=== PATIENT | male | born 1985 | race Caucasian/White ===

== ENCOUNTER 2017-08-11 17:50 | Emergency (ER) | payer BC ==
[2017-08-11] MEDS ORDERED: Acetaminophen/oxyCODONE 325-5 MG Tab PO ONE (17:51)
[2017-08-11] MEDS ORDERED: Ondansetron 4 MG Tab.DIS PO ONE (17:51)
[2017-08-11] MEDS ORDERED: Ketorolac 30 MG/ML SDV IVPUSH ONE (17:59)
[2017-08-11] MEDS ORDERED: Ondansetron 4 MG/2 ML SDV IVPUSH STA (17:59)
[2017-08-11] MEDS ORDERED: HYDROmorphone 1 MG/ML Syringe IVPUSH ONE (17:59)
[2017-08-11] MEDS ORDERED: Sodium Chloride 0.9% 1,000 ML IV ONE (18:00)
[2017-08-11 18:14] LABS: CHLORIDE,CL 100 mEq/L (98-106); SODIUM,NA 138 mEq/L (136-145)
[2017-08-11] MEDS ORDERED: Tamsulosin 0.4 MG Cap.ER PO ONE (18:31)
--- NOTE | 2017-08-11 18:43 | EDM.PDOC ---
ED HPI GENERAL MEDICAL PROBLEM - General Chief Complaint: Genitourinary Problem Stated Complaint: ? KIDNEY STONE Time Seen by Provider: 08/11/17 17:52 Source of Information: Reports: Patient History Limitations: Reports: No Limitations - History of Present Illness INITIAL COMMENTS - FREE TEXT/NARRATIVE: This patient is a 32 year old male that presents to the ER. Patient reports that about 2 hours [employer] he started having right flank pain with nausea. Patent reports that about 1 week ago he noticed having some mild blood in his urine. Patient reports that it feels like he has a kidney stone. Patient denies mccormick, dizziness, v, d, f, cp, soa, abd pain, bowel changes. Denies dysuria, starting or stopping stream. Patient alert and oriented. Patient holding right flank and does appear in pain. Onset: Today Onset Date: 08/11/17 Onset Time: 15:45 Location: Reports: Back (right flank) Severity: Moderate Improves with: Reports: None Worsens with: Reports: None Associated Symptoms: Reports: Nausea/Vomiting. Denies: Confusion, Chest Pain, Cough, cough w sputum, Diaphoresis, Fever/Chills, Headaches, Loss of Appetite, Malaise, Rash, Seizure, Shortness of Breath, Syncope, Weakness Right Flank Pain Score (Numeric/FACES): 6 - Related Data Allergies Allergy/AdvReac Type Severity Reaction Status Date / Time No Known Allergies Allergy Verified 08/11/17 17:59 Home Meds: Home Meds Sertraline [Zoloft] 50 mg PO DAILY 08/11/17 [History] ED ROS GENERAL - Review of Systems Review Of Systems: See Below Constitutional: Reports: No Symptoms HEENT: Reports: No Symptoms Respiratory: Reports: No Symptoms Cardiovascular: Reports: No Symptoms Endocrine: Reports: No Symptoms GI/Abdominal: Reports: Nausea. Denies: Abdominal Pain, Vomiting : Reports: Flank Pain (Right), Hematuria. Denies: Dysuria, Frequency, Incontinence, Pain, Urgency, Urinary Retention Musculoskeletal: Reports: No Symptoms Skin: Reports: No Symptoms Neurological: Reports: No Symptoms Psychiatric: Reports: No Symptoms Hematologic/Lymphatic: Reports: No Symptoms Immunologic: Reports: No Symptoms ED EXAM, GI/ABD - Physical Exam Exam: See Below Exam Limited By: No Limitations General Appearance: Alert, WD/WN, No Apparent Distress, Anxious, Mild Distress ( pain) Eyes: Bilateral: Normal Appearance Ears: Normal External Exam, Normal Canal, Hearing Grossly Normal, Normal TMs Nose: Normal Inspection, Normal Mucosa, No Blood Throat/Mouth: Normal Inspection, Normal Lips, Normal Teeth, Normal Gums, Normal Oropharynx, Normal Voice, No Airway Compromise Head: Atraumatic, Normocephalic Neck: Normal Inspection, Supple, Non-Tender, Full Range of Motion Respiratory/Chest: No Respiratory Distress, Lungs Clear, Normal Breath Sounds, No Accessory Muscle Use Cardiovascular: Normal Peripheral Pulses, Regular Rate, Rhythm, No Edema, No Gallop, No JVD, No Murmur, No Rub GI/Abdominal Exam: Normal Bowel Sounds, Soft, Non-Tender, No Organomegaly, No Distention, No Abnormal Bruit, No Mass, Pelvis Stable (Male) Exam: Deferred Rectal (Males) Exam: Deferred Back Exam: Normal Inspection, Full Range of Motion, CVA Tenderness (R) (mild). No: CVA Tenderness (L), Decreased Range of Motion, Muscle Spasm, Paraspinal Tenderness, Vertebral Tenderness Extremities: Normal Inspection, Normal Range of Motion, Non-Tender, No Pedal Edema, Normal Capillary Refill Neurological: Alert, Oriented Psychiatric: Normal Mood, Anxious Skin Exam: Warm, Dry, Intact, Normal Color, No Rash Lymphatic: No Adenopathy Course - Vital Signs Last Recorded V/S: Last Vital Signs Temp 96.4 F 08/11/17 17:53 Pulse 58 L 08/11/17 17:53 Resp 18 08/11/17 17:53 BP 150/91 H 08/11/17 17:53 Pulse Ox 100 08/11/17 17:53 - Orders/Labs/Meds Orders: Active Orders 24 hr Category Date Time Status Abdomen Pelvis wo Cont [CT] Stat Exams 08/11/17 17:59 Taken Labs: Laboratory Tests 08/11/17 08/11/17 08/11/17 Range/Units 17:52 18:03 18:03 WBC 6.6 (5.0-10.0) 10^3/uL RBC 5.13 (4.50-6.00) 10^6/uL Hgb 15.1 (14.0-18.0) g/dL Hct 45.4 (40.0-54.0) % MCV 88.5 (82.0-94.0) fL MCH 29.4 (27.0-32.0) pg MCHC 33.3 (33.0-38.0) g/dL RDW Coeff of Barbara 13.9 (11.0-15.0) % Plt Count 317 (150-400) 10^3/uL Neut % (Auto) 59.6 (35-85) % Lymph % (Auto) 20.6 (10-55) % [place] % (Auto) 13.3 (0-16) % Eos % (Auto) 5.9 H (0-5) % Baso % (Auto) 0.6 (0-3) % Neut # (Auto) 3.96 (1.80-7.00) 10^3/uL Lymph # (Auto) 1.37 (1.00-4.80) 10^3/uL [place] # (Auto) 0.88 H (0.00-0.80) 10^3/uL Eos # (Auto) 0.39 (0.00-0.45) 10^3/uL Baso # (Auto) 0.04 10^3/uL Sodium 138 (136-145) mEq/L Potassium 4.1 (3.5-5.0) mEq/L Chloride 100 (98-106) mEq/L Carbon Dioxide 31 (21-32) mmol/L BUN 20 H (7-18) mg/dL Creatinine 1.1 (0.7-1.3) mg/dL Est Cr Clr Drug Dosing 103.86 mL/min Estimated GFR (MDRD) > 60 (>=60) mL/min Glucose 129 H (75-99) mg/dL Calcium 9.4 (8.4-10.1) mg/dL Total Bilirubin 0.8 (0.0-1.0) mg/dL AST 36 (15-37) U/L ALT 54 (12-78) U/L Alkaline Phosphatase 70 (46-116) U/L Total Protein 7.9 (6.4-8.2) g/dL Albumin 4.1 (3.4-5.0) g/dL Amylase 61 (25-115) U/L Urine Color Yellow (YELLOW) Urine Appearance Clear (CLEAR) Urine pH 7.5 (4.5-8.0) Ur Specific [place] 1.015 (1.003-1.020) Urine Protein Trace H (NEGATIVE) mg/dL Urine Glucose (UA) Negative (NEGATIVE) mg/dL Urine Ketones Negative (NEGATIVE) mg/dL Urine Occult Blood Large H (NEGATIVE) Urine Nitrite Negative (NEGATIVE) Urine Bilirubin Negative (NEGATIVE) Urine Urobilinogen 0.2 (0.2-1.0) EU/dL Ur Leukocyte Esterase Negative (NEGATIVE) Urine RBC 30-40 H (0-5) /HPF Urine WBC Not seen (0-5) /HPF Amorphous Sediment Moderate H (NOT SEEN) /HPF Urine Bacteria Occasional H (NOT SEEN) /HPF Meds: Medications Discontinued Medications Generic Name Dose Route Start Last Admin Trade Name Freq PRN Reason Stop Dose Admin Hydromorphone HCl 0.5 mg 08/11/17 17:59 08/11/17 18:13 Dilaudid IVPUSH 08/11/17 18:00 0.5 mg ONETIME ONE Administration Sodium Chloride 1,000 mls @ 1,000 mls/hr 08/11/17 18:00 08/11/17 18:13 Normal Saline IV 08/11/17 18:59 1,000 mls/hr .BOLUS ONE Administration Ketorolac Tromethamine 30 mg 08/11/17 17:59 08/11/17 18:13 Toradol IVPUSH 08/11/17 18:00 30 mg ONETIME ONE Administration Ondansetron HCl 4 mg 08/11/17 17:59 08/11/17 18:13 Zofran IVPUSH 08/11/17 18:00 4 mg NOW STA Administration Ondansetron HCl 2 packet 08/11/17 18:49 Take Home: Ondansetron Odt 4 Mg, 2 Tab Pack PO 08/11/17 18:50 ONETIME ONE Oxycodone/Acetaminophen 2 packet 08/11/17 18:50 Take Home: Acetaminophen/Oxycodon, 2 Tab Pack PO 08/11/17 18:51 ONETIME ONE Tamsulosin HCl 0.4 mg 08/11/17 18:31 08/11/17 18:47 Flomax PO 08/11/17 18:32 0.4 mg ONETIME ONE Administration - Radiology Interpretation Free Text/Narrative:: CT renal; Discussed with radiologist 6mm and 4mm stones in distal ureter just above bladder with mild uropathy. No hydro. - Re-Assessments/Exams Free Text/Narrative Re-Assessment/Exam: 08/11/17 18:56 Patient reports his pain is much improved and so is his nausea. Departure - Departure Time of Disposition: 19:11 Disposition: Home, Self-Care 01 Condition: Fair Clinical Impression: Ureteral stone - Discharge Information Instructions: Kidney Stones, [id number], Pain Medicine Instructions, Easy-to- Read, Clean Intermittent Catheterization, Female Referrals: Herber Carter MD [Primary Care Provider] - Forms: ED Department Discharge Additional Instructions: Followup with your primary care provider Return to the ER for worsening of condition or any emergent concerns Increase water intake Zofran 4mg 1 pill every 6 hours as needed for nausea #4 take home; #10 no refill Oxycodone 5mg 1-2 pills every 4-6 hours as needed for pain #4 take home: #10 no refill Flomax 0.4mg 1 pill once a day #7 no refill - My Orders Last 24 Hours: My Active Orders 08/11/17 17:59 Abdomen Pelvis wo Cont [CT] Stat - Assessment/Plan Last 24 Hours: My Active Orders 08/11/17 17:59 Abdomen Pelvis wo Cont [CT] Stat Plan: PLEASE SEE RN NOTE FOR PFSH.
[2017-08-11] MEDS ORDERED: Take Home: Ondansetron 4 MG Tab.DIS, 2 Tab Pack PO ONE (18:49)
[2017-08-11] MEDS ORDERED: Take Home: Acetaminophen/oxyCODONE 325-5 MG, 2 Tab Pack PO ONE (18:50)
== END 2017-08-11 19:26 | disposition home or self-care (01) ==
LOC: CC.ED 17:50
DX: N20.1 Calculus of ureter (principal); Z79.899 Other long term (current) drug therapy
CPT/HCPCS: 36415; 74176; 80053; 81001; 82150; 85025; 96365; 96375; 99284; A9270; J1170; J1885; J2405; J7030; 96361; 96374